=== PATIENT | male | born 1995 | race Caucasian/White ===

== ENCOUNTER 2017-11-25 17:29 | Emergency (ER) | payer SELFPAY ==
[~2017-11-25] VITALS: Ht 165.1 cm; Wt 59.1 kg
[2017-11-25 22:06] VITALS: BP 123/79
== END 2017-11-25 22:12 | disposition home or self-care (01) ==
LOC: EMS 17:31
DX: L03.031 Cellulitis of right toe (principal); Q21.1 Atrial septal defect
CPT/HCPCS: 93005; 93306; 99284

== ENCOUNTER 2017-12-26 18:07 | Emergency (ER) | payer MEDICAID ==
[~2017-12-26] VITALS: Ht 167.6 cm; Wt 52.3 kg
[2017-12-26] MEDS ORDERED: ACETAMINOPHEN 500 MG TABLET PO ONE (19:30)
[2017-12-26 20:06] LABS: INFLUENZA TYPE A NEGATIVE FOR TYPE A (NEGATIVE)
[2017-12-26 20:07] LABS: INFLUENZA TYPE B NEGATIVE FOR TYPE B (NEGATIVE)
[2017-12-26] MEDS ORDERED: DEXAMETHASONE 4 MG TABLET PO ONE (20:30)
[2017-12-26] MEDS ORDERED: PENICILLIN G BENZATHINE LA 1,200,000 UNITS/2 ML SYRINGE IM ONE (20:30)
[2017-12-26 20:43] VITALS: BP 110/71
== END 2017-12-26 20:50 | disposition home or self-care (01) ==
LOC: EMS 18:11 → EDBD 18:11 → EMS 20:50
DX: J02.0 Streptococcal pharyngitis (principal)
CPT/HCPCS: 87430; 87804; 96372; 99284; J0561; J8540